=== PATIENT | male | born 1965 | race Two or more races ===

== ENCOUNTER → 2017-05-19 | Outpatient (CLI) | payer BC | END | disposition home or self-care (01) | LOC: HKI 14:46 | DX: M25.562 Pain in left knee (principal) | CPT/HCPCS: 73564; 73564-LT ==

== ENCOUNTER → 2017-06-05 | Outpatient (CLI) | payer BC | END | disposition home or self-care (01) | LOC: HKI 10:16 | DX: M17.12 Unilateral primary osteoarthritis, left knee (principal) | CPT/HCPCS: 20610 ==